=== PATIENT | male | born 1950 | race Caucasian/White ===

== ENCOUNTER 2017-05-18 06:37 | Day surgery (SDC) | payer OTHER, BC ==
[2017-05-15 13:18] VITALS: BMI 28.8
[2017-05-18] MEDS ORDERED: MIDAZOLAM HCL 2 MG/2 ML SINGLE DOSE VIAL ONE ×3 (06:49→08:10)
[2017-05-18] MEDS ORDERED: DEXAMETHASONE SOD PHOSPHATE/PF 10 MG/ML SDV ONE (06:49)
[2017-05-18] MEDS ORDERED: ROPIVACAINE HCL 0.5% 30ML VIAL ONE (06:50)
[2017-05-18] MEDS ORDERED: PROPOFOL 20 ML ONE (06:59)
[2017-05-18] MEDS ORDERED: SUCCINYLCHOLINE CHLORIDE 200 MG/10 ML VIAL ONE (06:59)
[2017-05-18] MEDS ORDERED: ePHEDrine SULFATE 50 MG/1 ML AMPULE ONE (06:59)
[2017-05-18] MEDS ORDERED: ONDANSETRON 4 MG/2 ML VIAL ONE (06:59)
[2017-05-18] MEDS ORDERED: DEXAMETHASONE SOD PHOSPHATE 4 MG/1 ML VIAL ONE (06:59)
[2017-05-18] MEDS ORDERED: PHENYLEPHRINE HCL 10 MG/1 ML SINGLE DOSE VIAL ONE (06:59)
[2017-05-18] MEDS ORDERED: LIDOCAINE HCL/PF 2% SDV 5ML VIAL ONE (06:59)
[2017-05-18] MEDS ORDERED: SODIUM CHLORIDE 0.9% P/F 10 ML VIAL IJ ONE (07:06)
[2017-05-18] MEDS ORDERED: BUPIVACAINE HCL/EPINEPHRINE/PF 30 ML VIAL IJ ONE (07:27)
[2017-05-18] MEDS ORDERED: EPINEPHrine 1:1,000 1 MG/1 ML - 30ML VIAL (INJECTION) ONE (07:39)
[2017-05-18] MEDS ORDERED: ceFAZolin SODIUM 1 GM VIAL ONE (07:59)
[2017-05-18] MEDS ORDERED: oxyCODONE HCL 10 MG SUSTAINED ACTING TABLET PO ONE (09:01)
[2017-05-18] MEDS ORDERED: oxyCODONE HCL 5 MG TABLET PO PRN ×2 (09:01→09:42)
--- NOTE | 2017-05-18 09:04 | OP ---
Operative Note - Note: Operative Date: 05/18/17 Pre-Operative Diagnosis: left shoulder degenerative arthrosis, left shoulder partial rotator cuff tear (degenerative) Operation: LSA, synovetomy, decomrpession, RCR with bioinductive patch Surgeon: Felix Brown Generation Manager: Jose Torres Anesthesia: General Operative Report Dictated: Yes
--- NOTE | 2017-05-18 09:04 | DS ---
Physical Examination Vital Signs: Vital Signs Temperature 98.8 F 05/18/17 06:57 Pulse Rate 62 05/18/17 06:57 Respiratory Rate 18 05/18/17 06:57 Blood Pressure 142/94 05/18/17 06:57 O2 Sat by Pulse Oximetry (%) 98 05/18/17 06:57 Discharge Summary Reason For Visit: OSTEOARTHRITIS LEFT SHOULDER, RTC TENDINOSIS Condition: Good - Instructions Diet, Activity, Other Instructions: Post Operative Instructions: Shoulder Arthroscopy Dr Felix Brown 1. Pain following a Shoulder Arthroscopy is variable and can be significant. Some patients will have more pain than others. You have been provided with a prescription for medication that contains a narcotic. You are not allowed to drive while on this medication. Feel free to take tylenol and medications such as Ibuprofen or Naprosyn in addition to the pain medicine if you do not have any problems with the NSAID class of medications. 2. Apply ice to the shoulder for 15 minutes every hour. You may continue this for as many days as necessary. 3. You may find sleeping on an incline (reclining chair) to be more comfortable for the first few days. 4. You must remain in your sling at all times except when showering. The only exception to this is to allow you to stretch your elbow a few times a day to prevent your hand and forearm from swelling. 5. You are not to use your arm to reach for anything, lift anything or carry anything until instructed otherwise. 6. You may remove the bandages in 48 hours. You may shower at that point. 7. Place band-aids on the incisions after your shower.Do not put any creams or lotions on the incision for two weeks. 8. Please call the office to schedule a visit to have your sutures removed. 9. If for any reason you believe you may have an infection or are concerned, please feel free to call me. I can be reached through our office number 24 hours a day. 10. Please call our office with any questions; we will review the surgical findings during your post-operative visit. Disposition: HOME - Home Medications Comprehensive Discharge Medication List: Ambulatory Orders NK [No Known Home Medication] 05/18/17
--- NOTE | 2017-05-18 09:09 | SURG ---
Surgery Public Safety Dispatcher Note Public Safety Dispatcher: Abdi Gray PA-C Date of Service: 05/18/17 Diagnosis: left shoulder degenerative arthrosis, left shoulder partial rotator cuff tear ( degenerative) Procedure: Left shoulder arthroscopy, synovetomy, decomrpession, rotator cuff repair with bioinductive patch I was present for the entirety of the operative procedure. For further detail, please refer to operative report. Visit type - Case Type Case Type: Scheduled Admission - New patient This patient is new to me today: Yes Date on this admission: 05/18/17
[2017-05-18] MEDS ORDERED: ONDANSETRON 4 MG/2 ML VIAL IVPUSH PRN (09:42)
[2017-05-18] MEDS ORDERED: LACTATED RINGERS SOLUTION 1,000 ML IV SCH (09:45)
[2017-05-18] MEDS ORDERED: oxyCODONE HCL 10 MG SUSTAINED ACTING TABLET ONE (10:26)
[2017-05-18 10:35] VITALS: TEMP 98.3
[2017-05-18 12:37] VITALS: BP 136/92; PULSE 88
--- NOTE | 2017-05-22 14:02 | PATH ---
Surgical Pathology Report Patient Name: ROJAS AVILEZ [facility]. Rec. #: [id number] /Age/Gender: 1950 (Age: 67) / M Account: [id number] Location: [facility] AMBULATORY Taken: 05/18/2017 Received: 05/18/2017 Reported: 05/22/2017 Physicians: Felix Brown M.D. Specimen(s) Received SHAVING LEFT SHOULDER Clinical History Rotator cuff tear Osteoarthritis left tendinitis Final Diagnosis LEFT SHOULDER, ARTHROSCOPIC SHAVINGS: FIBROCARTILAGE WITH MYXOID DEGENERATIVE CHANGES, AND PORTIONS OF SYNOVIUM. Electronically Signed Bj Hoffman M.D. Gross Description Received in formalin, labeled "shavings left shoulder," is a 1.5 x 1.5 x 0.2 cm. aggregate of rossi-yellow soft tissue fragments. The specimen is entirely submitted in one cassette. 05/21/201705/21/2017
== END 2017-05-18 11:45 | disposition home or self-care (01) ==
LOC: FASU 06:37
PROVIDERS: ATTEND Orthopaedic Surgery
PROC: 0RNK4ZZ Release Left Shoulder Joint, Percutaneous Endoscopic Approach (ICD-10-PCS; 2017-05-18)
PROC: 0RBK4ZZ Excision of Left Shoulder Joint, Percutaneous Endoscopic Approach (ICD-10-PCS; 2017-05-18)
PROC: 0LB24ZZ Excision of Left Shoulder Tendon, Percutaneous Endoscopic Approach (ICD-10-PCS; principal; 2017-05-18 08:14)
DX: M75.112 Incomplete rotator cuff tear or rupture of left shoulder, not specified as traumatic (principal); M19.012 Primary osteoarthritis, left shoulder; M65.812 Other synovitis and tenosynovitis, left shoulder; M75.52 Bursitis of left shoulder
CPT/HCPCS: 88304-TC; 94760